=== PATIENT | male | born 1960 | race Caucasian/White ===

== ENCOUNTER 2017-01-27 06:59 | Outpatient (CLI) | payer BC, OTHER ==
[2017-01-27 19:39] LABS: BILIRUBIN,URINE NEGATIVE (NEGATIVE); UR CULTURE IF IND NOT INDICATED; WBC,URINE 0-3 /HPF (0-3)
== END 2017-01-27 07:00 ==
LOC: LAB.WCP 06:59
PROVIDERS: ATTEND Family Medicine
DX: N39.0 Urinary tract infection, site not specified (principal)
CPT/HCPCS: 81001; 82043; 87086

== ENCOUNTER 2017-01-28 13:37 | Emergency (ER) | payer OTHER ==
--- NOTE | 2017-01-28 14:26 | ED Physician Documentation ---
PD HPI ALTERED MENTAL STATUS - Stated complaint Stated Complaint: ELEV BLOOD SUGAR - Chief complaint Chief Complaint: General - History obtained from History obtained from: Patient - History of Present Illness Timing - onset: How many days ago (has been feeling thirsty and urinating a lot for a week, and sugars have been elevated. Went to PMD yesterday with elevated sugar 400s. He had stopped his oral diabetes med about 2 weeks ago and is now feeling badly. Had labs done yesterday which showed low bicarb, so referred to ED today by PMD.) Timing - details: Gradual onset, Waxing and waning Quality / character: Disoriented (feeling lightheaded at times and feels his thinking is a bit slower.) Associated symptoms: General weakness. No: Fever, Headache, Dyspnea, Cough, Focal weakness Contributing factors: Diabetic, Recent med change (he stopped his diabetes med on his own recently (had heard commercial about it with list of side effects so didn't want to be on it).). No: Anticoagulated, Recent illness Basline status: Alert and oriented X 3, Ambulatory Similar symptoms before: Has not had sx before Recently seen: Clinic (yesterday) Review of Systems Constitutional: denies: Fever, Chills Nose: denies: Rhinorrhea / runny nose, Congestion Throat: denies: Sore throat Cardiac: denies: Chest pain / pressure, Palpitations Respiratory: denies: Dyspnea, Cough GI: reports: Nausea. denies: Abdominal Pain, Vomiting, Diarrhea : reports: Frequency. denies: Dysuria Skin: denies: Rash, Lesions Endocrine: reports: Polydypsia, Polyuria Immunocompromised: denies: Immunocompromised PD PAST MEDICAL HISTORY - Past Medical History Cardiovascular: None Respiratory: None Neuro: None Endocrine/Autoimmune: Type 2 diabetes (had stopped his oral diabetes meds couple weeks ago. He says he will resume them. ) - Present Medications Home Medications: Ambulatory Orders Medication Instructions Recorded Confirmed Aspirin 1 tab PO DAILY 01/28/17 01/28/17 Azilsartan Medoxomil [Edarbi] 1 tab PO DAILY 01/28/17 01/28/17 Fenofibrate 1 tab PO DAILY 01/28/17 01/28/17 Hydrochlorothiazide 1 tab PO DAILY 01/28/17 01/28/17 Metoprolol Succinate [Toprol Xl] 1 tab PO DAILY 01/28/17 01/28/17 Simvastatin 1 tab PO DAILY 01/28/17 01/28/17 amLODIPine [Norvasc] 1 tab PO DAILY 01/28/17 01/28/17 metFORMIN [Glucophage] 1 tab PO BID 01/28/17 01/28/17 - Allergies Allergies/Adverse Reactions: Allergies Allergy/AdvReac Type Severity Reaction Status Date / Time No Known Drug Allergies Allergy Verified 01/28/17 15:22 - Family History Family history: reports: DM PD ED PE NORMAL - Vitals Vital signs reviewed: Yes - General General: Alert and oriented X 3, No acute distress, Well developed/nourished - HEENT HEENT: Ears normal, Moist mucous membranes, Pharynx benign - Neck Neck: Supple, no meningeal sign, No adenopathy, No JVD, No bruit - Cardiac Cardiac: RRR, No murmur - Respiratory Respiratory: Clear bilaterally - Abdomen Abdomen: Soft, Non tender, Non distended - Male Male : Deferred - Rectal Rectal: Deferred - Back Back: No CVA TTP - Derm Derm: Normal color, Warm and dry - Extremities Extremities: Normal ROM s pain, No edema, No calf tenderness / cord - Neuro Neuro: Alert and oriented X 3, No motor deficit, Normal speech Results - Vitals Vitals: Oxygen O2 Source Room air - Labs Labs: Laboratory Tests 01/28/17 01/28/17 01/28/17 14:54 15:07 15:07 WBC 6.5 RBC 5.54 Hgb 16.3 Hct 47.6 MCV 86.0 MCH 29.4 MCHC 34.1 RDW 13.4 Plt Count 138 MPV 12.3 H Neut # 3.2 Lymph # 2.6 [place] # 0.6 Eos # 0.0 Baso # 0.0 Absolute Nucleated RBC 0.02 Nucleated RBCs 0.3 Manual Slide Review Indicated WBC Morphology NORMAL APPEARANCE Platelet Estimate NORMAL (130-450,000) Platelet Morphology 1+ GIANT PLATELETS RBC Morph Micro Appear NORMAL APPEARANCE VBG pH VBG pCO2 VBG pO2 VBG HCO3 VBG Total CO2 VBG O2 Saturation VBG Base Excess Sodium 127 L Potassium 4.2 Chloride 83 L Carbon Dioxide 25 Anion Gap 19.0 H BUN 23 H Creatinine 1.1 Estimated GFR (MDRD) 70 L Glucose 379 H POC Whole Bld Glucose 441 H Calcium 9.7 Magnesium 2.2 Total Bilirubin 1.7 H AST 35 ALT < 10 L Alkaline Phosphatase 88 Total Protein 6.7 Albumin 4.1 Globulin 2.6 Albumin/Globulin Ratio 1.6 Lipase 26 Serum Ketones MODERATE H 01/28/17 01/28/17 15:07 17:23 WBC RBC Hgb Hct MCV MCH MCHC RDW Plt Count MPV Neut # Lymph # [place] # Eos # Baso # Absolute Nucleated RBC Nucleated RBCs Manual Slide Review WBC Morphology Platelet Estimate Platelet Morphology RBC Morph Micro Appear VBG pH 7.405 VBG pCO2 43.8 VBG pO2 60.4 H VBG HCO3 26.8 VBG Total CO2 28.2 VBG O2 Saturation 90.4 H VBG Base Excess 1.7 Sodium Potassium Chloride Carbon Dioxide Anion Gap BUN Creatinine Estimated GFR (MDRD) Glucose POC Whole Bld Glucose 275 H Calcium Magnesium Total Bilirubin AST ALT Alkaline Phosphatase Total Protein Albumin Globulin Albumin/Globulin Ratio Lipase Serum Ketones PD MEDICAL DECISION MAKING - ED course Complexity details: considered differential (ketosis without acidosis. Given IV fluids and some insulin. He is taking orally okay. He is to resume his oral diabetes meds. ), d/w patient, d/w senior sustainability consultant (Dr. Koch, who felt not meeting admission criteria without acidosis. ) Departure - Departure Disposition: 01 Home, Self Care Clinical Impression: Ketosis due to diabetes, Hyponatremia Hyperglycemia due to type 2 diabetes mellitus Qualifiers: Diabetes mellitus alf insulin use: without lobsterman use Qualified Code(s ): E11.65 - Type 2 diabetes mellitus with hyperglycemia Condition: Stable Record reviewed to determine appropriate education?: Yes Instructions: ED Diet Diabetic Follow-Up: Jacky Fraser MD [Primary Care Provider] - Comments: Drink regular fluids. Low sugar diet. Resume your prior diabetes medication. Check blood sugars twice daily and track for the next week. Follow up with your PMD next week, call for appt. Discharge Date/Time: 01/28/17 17:58
[2017-01-28] MEDS ORDERED: SODIUM CHLORIDE 0.9% 1,000 ML IV ONE ×2 (14:44→14:45)
[2017-01-28] MEDS ORDERED: ONDANSETRON 4 MG/2 ML VIAL IVP STA (14:45)
[2017-01-28] MEDS ORDERED: ONDANSETRON 4 MG/2 ML VIAL ONE (15:04)
[2017-01-28 15:25] LABS: BASOPHILS % (AUTO) 0.5 %; EOSINOPHILS % (AUTO) 0.8 %; HCT - HEMATOCRIT 47.6 % (42.0-52.0); HGB - HEMOGLOBIN 16.3 g/dL (14.0-18.0); LYMPHOCYTES # (AUTO) 2.6 10^3/uL (1.5-3.5); LYMPHOCYTES % (AUTO) 39.5 %; MEAN CORPUSCULAR HEMOGLOBIN 29.4 pg (27.0-31.0); MEAN CORPUSCULAR HGB CONC 34.1 g/dL (32.0-36.0); MEAN PLATELET VOLUME 12.3 fL (7.4-11.4); MONOCYTES # (AUTO) 0.6 10^3/uL (0.0-1.0); MONOCYTES % (AUTO) 9.7 %; NEUTROPHILS # (AUTO) 3.2 10^3/uL (1.5-6.6); NEUTROPHILS % (AUTO) 49.5 %; NUCLEATED RED BLOOD CELLS AUTO 0.3 /100WBC; RED BLOOD COUNT 5.54 10^6/uL (4.70-6.10); RED CELL DISTRIBUTION WIDTH 13.4 % (12.0-15.0); UNCORRECTED WHITE BLOOD COUNT 6.5 x10^3/uL; WHITE BLOOD COUNT 6.5 x10^3/uL (4.8-10.8)
[2017-01-28 15:26] LABS: VBG BASE EXCESS 1.7 mmol/L (-2 - +2); VBG OXYGEN SATURATION 90.4 % (60-80); VBG PH 7.405 (7.31-7.41); VBG TOTAL CO2 28.2 mmol/L (24-29)
[2017-01-28 15:46] LABS: PLATELET ESTIMATE, MANUAL NORMAL (130-450,000) (NORMAL); PLATELET MORPHOLOGY 1+ GIANT PLATELETS (NORMAL); WBC MORPHOLOGY (MULTIPLE) NORMAL APPEARANCE (NORMAL)
[2017-01-28] MEDS ORDERED: INSULIN REGULAR HUMAN 100 UNIT/1 ML 10 ML MDV IVP STA (15:58)
[2017-01-28] MEDS ORDERED: INSULIN REGULAR HUMAN 100 UNIT/1 ML 10 ML MDV ONE (16:01)
[2017-01-28 16:10] LABS: ALBUMIN/GLOBULIN RATIO 1.6 (1.0-2.2); BILIRUBIN,TOTAL 1.7 mg/dL (0.2-1.0); BUN - BLOOD UREA NITROGEN 23 mg/dL (6-20); CALCIUM 9.7 mg/dL (8.5-10.3); CARBON DIOXIDE - CO2 25 mmol/L (21-32); CHLORIDE 83 mmol/L (101-111); CREATININE 1.1 mg/dL (0.6-1.2); GFR - MDRD 70 (>89); GLUCOSE 379 mg/dL (70-100); LIPASE 26 U/L (22-51); MAGNESIUM 2.2 mg/dL (1.7-2.8); POTASSIUM 4.2 mmol/L (3.5-5.0); SODIUM 127 mmol/L (135-145); TOTAL PROTEIN 6.7 g/dL (6.7-8.2)
[2017-01-28 17:52] VITALS: BP 94/64
== END 2017-01-28 17:58 | disposition home or self-care (01) ==
LOC: ED 13:37
DX: E13.10 Other specified diabetes mellitus with ketoacidosis without coma (principal); E87.1 Hypo-osmolality and hyponatremia; T38.3X6A Underdosing of insulin and oral hypoglycemic [antidiabetic] drugs, initial encounter; Z91.128 Patient's intentional underdosing of medication regimen for other reason; Z79.82 Long term (current) use of aspirin; Z79.84 Long term (current) use of oral hypoglycemic drugs
CPT/HCPCS: 36415; 80053; 82009; 82803; 83690; 83735; 85025; 96361; 96374; 99284; J1815

== ENCOUNTER 2017-08-04 14:11 | Outpatient (CLI) | payer OTHER | END 2017-08-04 14:12 | disposition home or self-care (01) | LOC: SC 14:11 | PROVIDERS: ATTEND Specialist | DX: G47.33 Obstructive sleep apnea (adult) (pediatric) (principal); R06.83 Snoring; I10 Essential (primary) hypertension; E66.9 Obesity, unspecified; Z68.41 Body mass index [BMI] 40.0-44.9, adult | CPT/HCPCS: 99205; 99212 ==

== ENCOUNTER 2017-11-07 09:42 | Outpatient (CLI) | payer OTHER | END 2017-11-07 09:43 | disposition home or self-care (01) | LOC: SC 09:42 | PROVIDERS: ATTEND Internal Medicine Pulmonary Disease | DX: G47.33 Obstructive sleep apnea (adult) (pediatric) (principal) | CPT/HCPCS: 99212; 99213 ==

== ENCOUNTER 2019-02-01 06:44 | Day surgery (SDC) | payer OTHER ==
[2019-02-01] MEDS ORDERED: LACTATED RINGERS 1,000 ML IV ONE (07:01)
[2019-02-01] MEDS ORDERED: fentaNYL 250 MCG/5 ML VIAL IVP ONE (08:14)
[2019-02-01] MEDS ORDERED: MIDAZOLAM 2 MG/2 ML VIAL IVP ONE (08:14)
[2019-02-01 09:43] VITALS: BP 119/82
== END 2019-02-01 06:45 | disposition home or self-care (01) ==
LOC: SDS 06:44
PROVIDERS: ATTEND Internal Medicine Gastroenterology
PROC: 0DBK8ZZ Excision of Ascending Colon, Via Natural or Artificial Opening Endoscopic (ICD-10-PCS; 2019-02-01)
PROC: 0DBK8ZZ Excision of Ascending Colon, Via Natural or Artificial Opening Endoscopic (ICD-10-PCS; principal; 2019-02-01 08:30)
DX: Z12.11 Encounter for screening for malignant neoplasm of colon (principal); D12.2 Benign neoplasm of ascending colon; K57.30 Diverticulosis of large intestine without perforation or abscess without bleeding; K42.9 Umbilical hernia without obstruction or gangrene; I10 Essential (primary) hypertension; E11.9 Type 2 diabetes mellitus without complications; G47.30 Sleep apnea, unspecified; F17.220 Nicotine dependence, chewing tobacco, uncomplicated; Z79.84 Long term (current) use of oral hypoglycemic drugs; E66.01 Morbid (severe) obesity due to excess calories; Z68.41 Body mass index [BMI] 40.0-44.9, adult
CPT/HCPCS: 45380; 45385; J3010; J7120

== ENCOUNTER 2019-04-16 07:31 | Day surgery (SDC) | payer OTHER ==
[~2019-04-16 07:31] MED LIST: BUPIVACAINE 0.5%-EPI 1:200000 PF 30 ML VIAL ONE; ceFAZolin 1 GM VIAL ONE
[2019-04-16] MEDS ORDERED: ROCURONIUM 50 MG/5 ML VIAL IVP ONE (07:32)
[2019-04-16] MEDS ORDERED: ONDANSETRON 4 MG/2 ML VIAL IVP ONE (07:32)
[2019-04-16] MEDS ORDERED: KETOROLAC 30 MG/ML VIAL IVP ONE (07:32)
[2019-04-16] MEDS ORDERED: GLYCOPYRROLATE 1 MG/5 ML VIAL IVP ONE (07:32)
[2019-04-16] MEDS ORDERED: ePHEDrine 50 MG/ML VIAL IVP ONE (07:32)
[2019-04-16] MEDS ORDERED: MIDAZOLAM 2 MG/2 ML VIAL IVP ONE (07:32)
[2019-04-16] MEDS ORDERED: fentaNYL 100 MCG/2 ML VIAL IVP ONE (07:32)
[2019-04-16] MEDS ORDERED: PROPOFOL 200 MG/20 ML VIAL IVP ONE (07:32)
[2019-04-16] MEDS ORDERED: NEOSTIGMINE 1 MG/1 ML 10 ML MDV IVP ONE (07:32)
[2019-04-16] MEDS ORDERED: LACTATED RINGERS 1,000 ML IV ONE ×2 (07:57→09:40)
--- NOTE | 2019-04-16 08:05 | ANESTHESIA ---
Pre-Anesthesia VS, & Labs - Diagnosis Umbilical hernia - Procedure Open umbilical hernia repair with mesh Vital Signs: Temp Pulse Resp BP Pulse Ox 36 C L 80 18 139/97 H 97 04/16/19 07:42 04/16/19 07:42 04/16/19 07:42 04/16/19 07:42 04/16/19 07:42 Height 5 ft 10 in Weight (kg) 134.4 kg Body Mass Index 38.8 - NPO Other (0530 sip water) - Lab Results Current Lab Results: Laboratory Tests 04/16/19 07:47: POC Whole Bld Glucose 143 H Home Medications and Allergies Home Medications: Ambulatory Orders amLODIPine [Norvasc] 1 DAILY 04/16/19 Aspirin 1 tab PO DAILY 01/28/17 Fenofibrate 1 tab PO DAILY 01/28/17 Metoprolol Succinate [Toprol Xl] 1 tab PO DAILY 01/28/17 Simvastatin 1 tab PO DAILY 01/28/17 hydroCHLOROthiazide [Hydrochlorothiazide] 1 tab PO DAILY 01/28/17 metFORMIN [Glucophage] 2 tab PO BID 01/28/17 Glipizide 10 mg PO BID 03/10/17 Telmisartan 80 mg PO DAILY 03/10/17 amLODIPine [Norvasc] 1 DAILY 04/16/19 Allergies/Adverse Reactions: Allergies Allergy/AdvReac Type Severity Reaction Status Date / Time No Known Drug Allergies Allergy Verified 01/28/17 15:22 Anes History & Medical History - Anesthetic History Anesthesia Complications: reports: No previous complications Family history of Anesthesia Complications: Denies Family history of Malignant Hyperthermia: Denies - Medical History Cardiovascular: reports: Hypertension, High cholesterol Pulmonary: reports: Sleep apnea, CPAP use Gastrointestinal: reports: None, Colon polyps Urinary: reports: None Neuro: reports: None Musculoskeletal: reports: None Endocrine/Autoimmune: reports: Type 2 diabetes Blood Disorders: reports: None Skin: reports: None Smoking Status: Never smoker Psychosocial: reports: No issues indicated - Surgical History General: Colonoscopy Exam General: Alert, Oriented x3, Cooperative Dental: Other (Bridges) Mouth Opening: Greater than 4 Fingerbreadths Neck Mobility: Normal Mallampati classification: I Thyromental Distance: greater than 6 cm Respiratory: Lungs clear Cardiovascular: Regular rate Mental/Cognitive Status: Alert/Oriented X3 Cognitive Status: Within normal limits Plan Anesthesia Type: General Consent for Procedure(s) Verified and Reviewed: Yes Code Status: Attempt Resuscitation ASA classification: 3-Severe systemic disease Is this case an emergency?: No
[2019-04-16] MEDS ORDERED: BUPIVACAINE 0.5%-EPI 1:200000 PF 30 ML VIAL SUBQ ONE (08:55)
[2019-04-16] MEDS ORDERED: ceFAZolin 1 GM VIAL IR ONE (08:56)
[2019-04-16] MEDS ORDERED: ONDANSETRON 4 MG/2 ML VIAL IVP PRN (09:36)
[2019-04-16] MEDS ORDERED: ACETAMINOPHEN 325 MG TABLET PO PRN (09:36)
[2019-04-16] MEDS ORDERED: oxyCODONE 5 MG TABLET PO PRN (09:36)
[2019-04-16] MEDS ORDERED: IBUPROFEN 600 MG TABLET PO PRN (09:36)
--- NOTE | 2019-04-16 10:16 | OPERATIVE REPORT ---
DATE OF SERVICE: 04/16/2019 Physician: Ra Reynolds MD PREOPERATIVE DIAGNOSIS: Symptomatic umbilical hernia. POSTOPERATIVE DIAGNOSIS: Symptomatic umbilical hernia. PROCEDURE PERFORMED: Open repair with Ventralex ST hernia patch. ANESTHESIA: General endotracheal plus local by ANESTHESIA PROVIDER: Dania Nunes CRNA. SURGEON: Ra Reynolds MD ESTIMATED BLOOD LOSS: 10 mL COMPLICATIONS: None. FINDINGS: A 3 cm diameter umbilical fascial hernia was present with preperitoneal fat present in comprising the hernia sac. A 3.7-inch diameter Ventralex ST hernia patch was placed in a preperitoneal position. INDICATIONS: Patient is a 58-year-old gentleman with a progressively enlarging and increasingly painful and tender umbilical bulge. Examination revealed a tender reducible umbilical hernia. Because of marked symptoms despite risk factors for recurrence including morbid obesity and diabetes and tobacco dependence, he was advised to undergo repair. TECHNIQUE: After informed consent, patient was taken to the operating room where he was placed under general endotracheal anesthesia. Preoperative preparation included application of sequential calf compression boots and administration of 3 grams of cefazolin intravenously within an hour of the incision. His abdomen had been clipped in the ASU, was prepared with ChloraPrep solution and draped in the usual sterile fashion. A transverse curvilinear infraumbilical incision was made approximately 5-6 cm in length and carried down through subcutaneous tissues. The umbilical dermis was dissected off of the hernia sac. Hernia sac and contents were reduced, and the fascial edges were mobilized circumferentially, developing a space in the preperitoneal plane of sufficient size to place a 3.7-inch diameter Ventralex soft tissue patch. After the space had been created successfully without entering the peritoneal cavity, the wound was irrigated with antibiotic solution containing 1 gram cefazolin per liter, the patch was soaked in the antibiotic solution, placed in the preperitoneal space. The strap was used to hold the patch against the anterior abdominal wall as the fascial defect was reapproximated transversely with interrupted 0 Ethibond sutures. Approximately 8 or 10 sutures were used, several of which incorporated the strap attached to the mesh. Excess strap was excised and discarded. After hemostasis had been ensured, the wound was again irrigated with antibiotic solution, following which wound closure was accomplished in layers using continuous 3-0 Vicryl to reapproximate the subcutaneous tissues, as well as reapproximating the umbilical dermis to the anterior fascia, and 4-0 Monocryl subcuticular skin closure, followed by Dermabond; 30 mL of 0.5% Marcaine with epinephrine was used for local infiltration anesthesia. Anesthesia was terminated and patient was transferred to the recovery room in satisfactory condition. Sponge and needle counts were correct x2. No drains were used. cc: Sanjuana Martell DO TD: 04/16/2019 09:50 MTDD
[2019-04-16] MEDS ORDERED: ACETAMINOPHEN 1,000 MG/100 ML 100 ML IV ONE (10:17)
[2019-04-16 11:39] VITALS: BP 124/82
== END 2019-04-16 07:32 | disposition home or self-care (01) ==
LOC: SDS 07:31
PROVIDERS: ATTEND Internal Medicine Gastroenterology
PROC: 0WUF0JZ Supplement Abdominal Wall with Synthetic Substitute, Open Approach (ICD-10-PCS; principal; 2019-04-16 08:30)
DX: K42.9 Umbilical hernia without obstruction or gangrene (principal); E11.9 Type 2 diabetes mellitus without complications; I10 Essential (primary) hypertension; G47.30 Sleep apnea, unspecified; E78.00 Pure hypercholesterolemia, unspecified; Z79.82 Long term (current) use of aspirin; Z79.84 Long term (current) use of oral hypoglycemic drugs; E66.9 Obesity, unspecified; Z68.38 Body mass index [BMI] 38.0-38.9, adult
CPT/HCPCS: 49585; C1781; J0131; J7120

== ENCOUNTER 2019-10-10 12:57 | Outpatient (CLI) | payer OTHER ==
[2019-10-10 13:50] VITALS: BP 154/100
--- NOTE | 2019-10-10 13:50 | SLEEP CARE CONSULTATION ---
Information from patient questionnaire entered by Jennifer Shoemaker. I have reviewed and concur with the information entered by Jennifer Shoemaker. This document represents the service I personally performed and the decisions made by me, Kori Sepulveda, RN, MSN, MANAGER BUSINESS INFORMATION. History of Present Illness Previous diagnosis: Severe, Obstructive Sleep Apnea-Hypopnea Syndrome AHI: 34.3 Reason for follow up: annual (last seen 2017) Equipment type: CPAP Equipment obtained from: [employer] Mask style: Nasal (Air Fit N20) Mask brand: Resmed Backup mask available: No Last cushion change: none since set up HPI additional information: Patient started CPAP shortly after seeing Dr. Coleman 11/07/17. Compliance date from 11/23 to 12/22.18 showed 70% greater than 4 hours a night with good control of his apnea on autoPAP [id number] with residual of 0.6. He states he has used CPAP nightly since he first started treatment. He was unaware he had to have appointment after getting CPAP. I looked in his last note that stated follow up in one month. Patient states he carries a year schedule with him due to his work and would have scheduled right away if had known. He showed me his schedule today. It is unclear why follow up was not done. He is here today as he is unable to get supplies from [employer] where he obtained his device. He is instead getting his supplies online and recently found out his coworkers get their equipment covered by same insurance. He voiced frustration since hearing this and stated he was upset today. CPAP Compliance Data - Data Reviewed with Patient Average duration of nightly device use: 6.1 Compliance rate %: 76 (180 days) Current pressure setting (cmH2O): 5-15 Humidity settin Average residual AHI: 0.5 Average large leak: 0.4 liters per minute Subjective Patient concerns: reports: nasal congestion (intermittent). denies: aerophagia, mask discomfort, air blowing in eyes, mask leak noise, condensation in mask/hose, dry mouth, nose, throat, epistaxis Observed to snore while using device: No Current pressure setting perceived as: too low (wakes in middle of night intermittently and will have to remove mask to get more air) On therapy, patient: reports: sleeping better, awakening more refreshed, being more awake and alert during the day, more rested overall. denies: drowsiness while driving Initial [place] Sleepiness Scale score: 3 Current [place] Sleepiness Scale score: 0 Allergies and Home Medications Known drug allergies: No Home medication list reviewed: Yes (see list - no changes ) Allergy and home medication list: Medication List Medication Name (generic/name brand) Strength & Dosage Aspirin EC 81mg tab one daily Hydrochlorothiazide 25mg tab one daily Fenofibrate 160mg tab one daily Simvastatin 20mg tab one daily at bedtime Toprol XL 100mg tab one daily Metformin HCL 500mg tab two BID Amlodipine Besylate 5mg tab one daily Telmisartan 80mg tab one daily Glipizide 10mg tab one BID Review of Systems Review of systems same as previous: Yes Physical Exam Blood Pressure: 154/100 (he states he is ticked usuall 110-120-/80 home) Cuff size: long Heart Rate: 84 O2 Saturation: 95 Height: 5 ft 10 in Weight: 301 lb Body Mass Index: 43.2 BMI Classification: Obesity Class 3 Impression and Plan 1. Obstructive Sleep Apnea-Hypopnea Syndrome, severe, with good treatment compliance and good apnea control. On CPAP therapy, the patient has better sleep quality and is more rested overall. It is unclear why he did not have a first compliance follow up or why [facility] has not contacted him to update supplies. The patient makes his appointments as soon as he is aware of need due to his work schedule. He showed me a year calender which he works from and plans from. He has paid for CPAP device and any updated equipment needed. Though he is still wearing the original mask. I gave him a supply replacement list to show what insurance generally covers for reference. Thus I will have him contact his insurance to see if CPAP and supplies covered now before contacting [facility]. His compliance was good within first 90 days of use as well as now. Patient reports he has used it nightly and only takes off if significant air hunger and unable to tolerate. Thus I will adjust his autoCPAP pressure to [id number]. He is to contact me if still air hunger or uncomfortable. Nasal congestion can be reduced with increasing the CPAP humidity but patient was not able to use humidity due to his work as would get water every where in his sleeping berth while traveling. It should be emptied between use but most people try to use the distilled water more than one day. It also seems it was not comfortable to use. Thus saline nasal spray sample was given to use prior to CPAP for moisture. It can also be used to clear nasal secretions and wash off any nasal allergens to facilitate nasal breathing when nasal congestion. In addition, a steamy shower before bed will often assist nasal drainage. Patient's apnea severity and rationale for treatment to reduce apnea, improve sleep quality and reduce cardiovascular and cerebrovascular events was reviewed. I also reviewed the benefit of consistent device use of CPAP for hypertension, diabetes. 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 It is hoped with this documentation of his use of CPAP since starting treatment that his supplies will now be paid for by insurance. I also ordered update of his CPAP supplies to initiate process. 2. Elevated Blood pressure, patient states he is upset due to finding out his CPAP should be paid by his insurance like his co workers. He monitors his blood pressure regularly and it is generally in normal range of 120/80 range. He is advised to retake once he is home and settled. As noted in exam note. Patient came in here upset due to finding his co-workers CPAP was paid for insurance and he reports he paid for his. If his blood pressure continues to be elevated he is to contact his PCP. I also reviewed the health risks of inadequately treated blood pressure. Patient agreed with plan. * Change autoCPAP pressure to 12-15 cmH2O * Update supplies * Notify me if snoring with mask or feeling that the pressure is too much or too little * Attempt to lose weight * retake Blood pressure at home and contact PCP if still elevated. * Call this office if any problems using CPAP * Return for follow up in 1 year , or sooner if concerns arise Time Spent with Patient (minutes): 40 I spent 100% of this visit face to face with the patient with greater than 50% of this was spent time counseling the patient and coordination of care.
== END 2019-10-10 12:58 | disposition home or self-care (01) ==
LOC: SC 12:57
PROVIDERS: ATTEND Nurse Practitioner Family
DX: G47.33 Obstructive sleep apnea (adult) (pediatric) (principal); R03.0 Elevated blood-pressure reading, without diagnosis of hypertension; E66.9 Obesity, unspecified; Z68.41 Body mass index [BMI] 40.0-44.9, adult
CPT/HCPCS: 99212; 99215

== ENCOUNTER 2020-03-05 08:00 | Outpatient (CLI) | payer OTHER | END 2020-03-05 23:59 | disposition home or self-care (01) | LOC: LAB 08:00 | PROVIDERS: ATTEND Family Medicine | DX: Z11.59 Encounter for screening for other viral diseases (principal) | CPT/HCPCS: 81599 ==

== ENCOUNTER 2020-07-09 13:14 | Outpatient (CLI) | payer OTHER ==
--- NOTE | 2020-07-09 16:31 | XRAY Report ---
PROCEDURE: Cervical Spine 2 View INDICATIONS: CERVICAL RADICULOPATHY TECHNIQUE: 3 view(s) of the cervical spine were acquired. COMPARISON: None. FINDINGS: Bones: No fractures or dislocations to the superior endplate of T1 level. The lateral masses of C1 appear intact on the odontoid view. No suspicious bony lesions. Straightening of cervical lordosis. Multilevel cervical spondylosis most pronounced at C5-6 through C7-T1. There is disc space loss, end plate changes and endplate osteophyte formation at these levels. Soft tissues: No prevertebral soft tissue swelling. IMPRESSION: Cervical spine without acute fracture or dislocation. Straightening of cervical lordosis likely related to positioning and/or muscle spasms. Multilevel cervical spondylosis most pronounced from C5-6 through C7-T1. Reviewed by: Tyron Solomon MD on 07/09/2020 3:29 PM [facility] Approved by: Tyron Solomon MD on 07/09/2020 3:29 PM [facility] Station ID: [id number]
== END 2020-07-09 23:59 | disposition home or self-care (01) ==
LOC: DI.WCP 13:14
PROVIDERS: ATTEND Family Medicine
DX: M47.812 Spondylosis without myelopathy or radiculopathy, cervical region (principal); M47.813 Spondylosis without myelopathy or radiculopathy, cervicothoracic region
CPT/HCPCS: 72040

== ENCOUNTER 2020-11-27 07:50 | Outpatient (CLI) | payer OTHER ==
[2020-11-27 11:42] LABS: BASOPHILS % (AUTO) 0.5 %; EOSINOPHILS # (AUTO) 0.1 10^3/uL (0.0-0.7); EOSINOPHILS % (AUTO) 1.6 %; HCT - HEMATOCRIT 44.4 % (42.0-52.0); HGB - HEMOGLOBIN 14.8 g/dL (14.0-18.0); LYMPHOCYTES # (AUTO) 2.4 10^3/uL (1.5-3.5); LYMPHOCYTES % (AUTO) 42.7 %; MEAN CORPUSCULAR HEMOGLOBIN 30.1 pg (27.0-31.0); MEAN CORPUSCULAR HGB CONC 33.3 g/dL (32.0-36.0); MEAN CORPUSCULAR VOLUME 90.2 fL (80.0-94.0); MONOCYTES # (AUTO) 0.5 10^3/uL (0.0-1.0); NEUTROPHILS # (AUTO) 2.5 10^3/uL (1.5-6.6); NEUTROPHILS % (AUTO) 45.1 %; PLT - PLATELET COUNT 189 10^3/uL (130-450); RED BLOOD COUNT 4.92 10^6/uL (4.70-6.10); RED CELL DISTRIBUTION WIDTH 12.7 % (12.0-15.0); WHITE BLOOD COUNT 5.6 x10^3/uL (4.8-10.8)
[2020-11-27 12:19] LABS: ALBUMIN 4.6 g/dL (3.2-5.5); ALBUMIN/GLOBULIN RATIO 1.5 (1.0-2.2); ALKALINE PHOSPHATASE 78 IU/L (42-121); ALT ALANINE AMINOTRANSFERASE 42 IU/L (10-60); AST ASPARTATE AMINOTRANSFERASE 24 IU/L (10-42); BILIRUBIN,TOTAL 0.3 mg/dL (0.2-1.0); BUN - BLOOD UREA NITROGEN 15 mg/dL (6-20); CALCIUM 9.9 mg/dL (8.5-10.3); CARBON DIOXIDE - CO2 24 mmol/L (21-32); CHLORIDE 106 mmol/L (101-111); CHOL/HDL RATIO 7.1 (<5.0); CHOLESTEROL 177 mg/dL; GFR - MDRD 77 (>89); GLUCOSE 143 mg/dL (70-100); HDL CHOLESTEROL 25 mg/dL; LDL CHOLESTEROL,CALCULATED 91 mg/dL; LDL/HDL RATIO 3.6 (<3.6); SODIUM 138 mmol/L (135-145); TOTAL PROTEIN 7.6 g/dL (6.7-8.2); TRIGLYCERIDES 306 mg/dL; VLDL CHOLESTEROL 61 mg/dL
[2020-11-27 12:21] LABS: ESTIMATED AVERAGE GLUCOSE 226 mg/dL (70-100); HEMOGLOBIN A1c% 9.5 % (4.27-6.07)
== END 2020-11-27 23:59 | disposition home or self-care (01) ==
LOC: LAB.WCP 07:50
PROVIDERS: ATTEND Family Medicine
DX: E11.9 Type 2 diabetes mellitus without complications (principal)
CPT/HCPCS: 36415; 80053; 80061; 83036; 83721; 85025

== ENCOUNTER 2021-06-20 08:00 | Outpatient (CLI) | payer OTHER | END 2021-06-20 23:59 | disposition home or self-care (01) | LOC: LAB.N 08:00 | PROVIDERS: ATTEND Physician Assistant Medical | DX: R05.3 Chronic cough (principal); Z20.822 Contact with and (suspected) exposure to COVID-19 ==

== ENCOUNTER 2022-07-28 12:41 | Outpatient (CLI) | payer BC ==
--- NOTE | 2022-07-28 13:22 | SLEEP CARE CONSULTATION ---
Information from patient questionnaire entered by Ella Cole. I have reviewed and concur with the information entered by Ella Cole. This document represents the service I personally performed and the decisions made by me, Elvi Skinner ARNP. History of Present Illness Service Date and Time: 07/28/2022 1241 Previous diagnosis: Severe, Obstructive Sleep Apnea-Hypopnea Syndrome AHI: 34.3 Reason for follow up: annual (LAST SEEN 10/2019) Equipment type: CPAP (GRIFFITH) Equipment obtained from: [employer] (has changed insurance) Mask style: Nasal (Air Fit N20) Backup mask available: No (will keep old mask when replaced) Last cushion change: 4-5 months ago Prior sleep studies: Yes HPI additional information: LORENA MCKEON was diagnosed to have severe, AHI 43.3, obstructive sleep apnea- hypopnea syndrome and returned today for CPAP therapy annual follow-up. CPAP Compliance Data - Data Reviewed with Patient Average duration of nightly device use: 8 hours 8 mins Compliance rate %: 98 (90/90 days used) Current pressure setting (cmH2O): 8-12 Average residual AHI: 0.4 Central apnea: 0.0 Obstructive apnea: 0.2 Average large leak: 2.5 LPM Subjective Missed days of use due to: reports: other (work starting early) Patient concerns: reports: nasal congestion (at night prior to putting mask on). denies: aerophagia, mask discomfort, air blowing in eyes, mask leak noise, condensation in mask/hose, dry mouth, nose, throat, epistaxis Observed to snore while using device: No Current pressure setting perceived as: comfortable On therapy, patient: reports: sleeping better, awakening more refreshed, being more awake and alert during the day, more rested overall. denies: drowsiness while driving Initial [place] Sleepiness Scale score: 3 (07/2022) Allergies and Home Medications Drug allergies reviewed: Yes (NKDA) Home medication list reviewed: Yes (no changes) Review of Systems Review of systems same as previous: Yes (no changes) Physical Exam Vital signs obtained and entered by: ELLA Bassett MA Blood Pressure: 144/90 (LEFT ARM) Cuff size: regular Heart Rate: 55 O2 Saturation: 95 Height: 5 ft 10 in Weight: 277 lb 9.6 oz (with shoes/clothes) Body Mass Index: 39.8 BMI Classification: Obese Impression and Plan 1. Obstructive Sleep Apnea-Hypopnea Syndrome, severe, with good treatment compliance and good apnea control. On CPAP therapy, the patient has better sleep quality and is more rested overall. Patient has changed insurance and needs a new DME supplier. I will have my pesticide use medical coordinator inform of DME options. A [facility] prescription will then be made. Patient advised to contact this office if further supply problems. Patient has significant improvement of their sleep apnea and are satisfied with current CPAP therapy. Patient denies problems with oral dryness, nasal congestion, epistaxis, skin irritation or aerophagia. Patient's apnea severity and rationale for treatment to reduce apnea, improve sleep quality and reduce cardiovascular and cerebrovascular events was reviewed. I also reviewed the benefit of consistent device use of CPAP for hypertension and diabetes. 2. Obesity, unspecified. Currently patients BMI is 39.8. Obesity increases the risk of apnea, CPAP pressure requirements and overall health risks especially cardiovascular and diabetes. Thus patient is advised to continue to try to lose weight. * Continue auto CPAP pressure at 12-15 cmH2O * Transfer DME * Update * Notify me if snoring with mask or feeling that the pressure is too much or too little * Attempt to lose weight * Call this office if any problems using CPAP * Return for follow up in 1 year, or sooner if concerns arise Counseling Topics: Spare mask, Weight loss health impact Visit Type: In Office Time Spent with Patient (minutes): 22 Provider Statement: I spent 100% of the Face to Face Visit with the patient with greater than 50% spent counseling the patient and coordination of care.
[2022-07-28 13:23] VITALS: BP 144/90
== END 2022-07-28 12:42 | disposition home or self-care (01) ==
LOC: SC 12:41
PROVIDERS: ATTEND Nurse Practitioner Family
DX: G47.33 Obstructive sleep apnea (adult) (pediatric) (principal); E66.9 Obesity, unspecified; Z68.39 Body mass index [BMI] 39.0-39.9, adult
CPT/HCPCS: 99212; 99213

== ENCOUNTER 2022-08-26 09:09 | Outpatient (CLI) | payer BC ==
[2022-08-26 13:11] LABS: BASOPHILS % (AUTO) 0.4 %; EOSINOPHILS # (AUTO) 0.1 10^3/uL (0.0-0.7); EOSINOPHILS % (AUTO) 1.2 %; HCT - HEMATOCRIT 47.9 % (42.0-52.0); HGB - HEMOGLOBIN 15.5 g/dL (14.0-18.0); LYMPHOCYTES % (AUTO) 35.3 %; MEAN CORPUSCULAR HEMOGLOBIN 29.2 pg (27.0-31.0); MEAN CORPUSCULAR HGB CONC 32.4 g/dL (32.0-36.0); MEAN CORPUSCULAR VOLUME 90.4 fL (80.0-94.0); MEAN PLATELET VOLUME 13.5 fL (7.4-11.4); MONOCYTES # (AUTO) 0.5 10^3/uL (0.0-1.0); MONOCYTES % (AUTO) 9.4 %; NEUTROPHILS % (AUTO) 52.8 %; PLT - PLATELET COUNT 172 10^3/uL (130-450); RED CELL DISTRIBUTION WIDTH 12.6 % (12.0-15.0); WHITE BLOOD COUNT 5.6 x10^3/uL (4.8-10.8)
[2022-08-26 13:15] LABS: ESTIMATED AVERAGE GLUCOSE 151 mg/dL (70-100); HEMOGLOBIN A1c% 6.9 % (4.27-6.07)
[2022-08-26 13:24] LABS: MICROALBUM/CREATININE RATIO,UR 31.1 ug/mg (<30.0); MICROALBUMIN,URINE 5.5 mg/dL (0-300.0)
[2022-08-26 13:25] LABS: ALBUMIN 4.5 g/dL (3.2-5.5); ALBUMIN/GLOBULIN RATIO 1.2 (1.0-2.2); ALKALINE PHOSPHATASE 70 IU/L (42-121); ALT ALANINE AMINOTRANSFERASE 49 IU/L (10-60); AST ASPARTATE AMINOTRANSFERASE 34 IU/L (10-42); BILIRUBIN,TOTAL 0.4 mg/dL (0.2-1.0); BUN - BLOOD UREA NITROGEN 12 mg/dL (6-20); CALCIUM 9.3 mg/dL (8.5-10.3); CARBON DIOXIDE - CO2 29 mmol/L (21-32); CHLORIDE 98 mmol/L (101-111); CHOL/HDL RATIO 6.3 (<5.0); CHOLESTEROL 169 mg/dL; CREATININE 0.9 mg/dL (0.6-1.2); GFR - MDRD 86 (>89); GLUCOSE 153 mg/dL (70-100); HDL CHOLESTEROL 27 mg/dL; LDL CHOLESTEROL,CALCULATED 107 mg/dL; POTASSIUM 3.8 mmol/L (3.5-5.0); SODIUM 136 mmol/L (135-145); TOTAL PROTEIN 8.2 g/dL (6.7-8.2); TRIGLYCERIDES 175 mg/dL; VLDL CHOLESTEROL 35 mg/dL
== END 2022-08-26 09:10 | disposition home or self-care (01) ==
LOC: LAB.N 09:09
PROVIDERS: ATTEND Family Medicine
DX: I10 Essential (primary) hypertension (principal); E11.9 Type 2 diabetes mellitus without complications; E78.1 Pure hyperglyceridemia; Z12.5 Encounter for screening for malignant neoplasm of prostate
CPT/HCPCS: 36415; 80053; 80061; 82043; 82570; 83036; 83721; 84153; 85025

== ENCOUNTER 2022-11-27 09:10 | Outpatient (CLI) | payer BC ==
[2022-11-27 19:03] LABS: BASOPHILS % (AUTO) 0.4 %; EOSINOPHILS # (AUTO) 0.1 10^3/uL (0.0-0.7); EOSINOPHILS % (AUTO) 1.5 %; HCT - HEMATOCRIT 45.3 % (42.0-52.0); HGB - HEMOGLOBIN 14.7 g/dL (14.0-18.0); LYMPHOCYTES # (AUTO) 2.1 10^3/uL (1.5-3.5); LYMPHOCYTES % (AUTO) 38.7 %; MEAN CORPUSCULAR HEMOGLOBIN 29.9 pg (27.0-31.0); MEAN CORPUSCULAR HGB CONC 32.5 g/dL (32.0-36.0); MEAN CORPUSCULAR VOLUME 92.1 fL (80.0-94.0); MONOCYTES # (AUTO) 0.6 10^3/uL (0.0-1.0); MONOCYTES % (AUTO) 10.8 %; NEUTROPHILS # (AUTO) 2.6 10^3/uL (1.5-6.6); NEUTROPHILS % (AUTO) 48.2 %; PLT - PLATELET COUNT 199 10^3/uL (130-450); RED BLOOD COUNT 4.92 10^6/uL (4.70-6.10); RED CELL DISTRIBUTION WIDTH 12.4 % (12.0-15.0); WHITE BLOOD COUNT 5.4 x10^3/uL (4.8-10.8)
[2022-11-27 19:11] LABS: ALBUMIN 4.4 g/dL (3.2-5.5); ALBUMIN/GLOBULIN RATIO 1.4 (1.0-2.2); BILIRUBIN,TOTAL 0.6 mg/dL (0.2-1.0); CALCIUM 9.3 mg/dL (8.5-10.3); TOTAL PROTEIN 7.5 g/dL (6.7-8.2)
[2022-11-28 09:16] LABS: ESTIMATED AVERAGE GLUCOSE 148 mg/dL (70-100); HEMOGLOBIN A1c% 6.8 % (4.27-6.07)
== END 2022-11-27 09:11 | disposition home or self-care (01) ==
LOC: LAB.N 09:10
PROVIDERS: ATTEND Family Medicine
DX: I10 Essential (primary) hypertension (principal); E11.9 Type 2 diabetes mellitus without complications; E78.5 Hyperlipidemia, unspecified
CPT/HCPCS: 36415; 80053; 83036; 85025

== ENCOUNTER 2022-12-11 09:10 | Outpatient (CLI) | payer BC ==
[2022-12-11 09:30] LABS: CALCIUM 9.3 mg/dL (8.5-10.3); POTASSIUM 3.9 mmol/L (3.5-5.0)
--- NOTE | 2022-12-11 19:38 | XRAY Report ---
PROCEDURE: Knee 3 View RT INDICATIONS: KNEE PAIN,RIGHT TECHNIQUE: 3 views of the right knee(s) were acquired. COMPARISON: None. FINDINGS: Bones: No fractures or dislocations. No suspicious bony lesions. There is at least moderate joint s pace also medial compartment and mild joint space loss of the patellofemoral compartment. There is tr icompartment osteophytosis worse within the patellofemoral and medial compartments. Soft tissues: No effusion. No suspicious soft tissue calcifications or masses. 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 Reviewed by: Eliseo Nesbitt DO on 12/11/2022 6:37 PM [facility] Approved by: Eliseo Nesbitt DO on 12/11/2022 6:37 PM [facility] Station ID: [id number]
== END 2022-12-11 09:11 | disposition home or self-care (01) ==
LOC: DI 09:10
PROVIDERS: ATTEND Physician Assistant
DX: M17.11 Unilateral primary osteoarthritis, right knee (principal); I10 Essential (primary) hypertension
CPT/HCPCS: 36415; 80048

== ENCOUNTER 2023-03-17 13:23 | Outpatient (CLI) | payer BC ==
[2023-03-17 18:05] LABS: CALCIUM 9.5 mg/dL (8.5-10.3); CREATININE 1.5 mg/dL (0.6-1.2); POTASSIUM 3.6 mmol/L (3.5-5.0)
== END 2023-03-17 13:24 | disposition home or self-care (01) ==
LOC: LAB.N 13:23
PROVIDERS: ATTEND Physician Assistant
DX: I10 Essential (primary) hypertension (principal)
CPT/HCPCS: 36415; 80048

== ENCOUNTER 2023-04-09 09:50 | Outpatient (CLI) | payer BC ==
[2023-04-09 19:20] LABS: BASOPHILS % (AUTO) 0.4 %; EOSINOPHILS # (AUTO) 0.1 10^3/uL (0.0-0.7); EOSINOPHILS % (AUTO) 1.5 %; HCT - HEMATOCRIT 44.2 % (42.0-52.0); HGB - HEMOGLOBIN 14.3 g/dL (14.0-18.0); LYMPHOCYTES # (AUTO) 2.1 10^3/uL (1.5-3.5); LYMPHOCYTES % (AUTO) 38.3 %; MEAN CORPUSCULAR HEMOGLOBIN 29.9 pg (27.0-31.0); MEAN CORPUSCULAR HGB CONC 32.4 g/dL (32.0-36.0); MEAN CORPUSCULAR VOLUME 92.5 fL (80.0-94.0); MEAN PLATELET VOLUME 12.9 fL (7.4-11.4); MONOCYTES # (AUTO) 0.5 10^3/uL (0.0-1.0); MONOCYTES % (AUTO) 9.5 %; NEUTROPHILS # (AUTO) 2.7 10^3/uL (1.5-6.6); NEUTROPHILS % (AUTO) 49.6 %; PLT - PLATELET COUNT 208 10^3/uL (130-450); RED BLOOD COUNT 4.78 10^6/uL (4.70-6.10); RED CELL DISTRIBUTION WIDTH 12.3 % (12.0-15.0); WHITE BLOOD COUNT 5.5 x10^3/uL (4.8-10.8)
[2023-04-09 19:35] LABS: ALBUMIN 4.5 g/dL (3.2-5.5); ALBUMIN/GLOBULIN RATIO 1.5 (1.0-2.2); ALKALINE PHOSPHATASE 59 IU/L (42-121); ALT ALANINE AMINOTRANSFERASE 21 IU/L (10-60); AST ASPARTATE AMINOTRANSFERASE 17 IU/L (10-42); BILIRUBIN,TOTAL 0.5 mg/dL (0.2-1.0); BUN - BLOOD UREA NITROGEN 11 mg/dL (6-20); CALCIUM 9.7 mg/dL (8.5-10.3); CARBON DIOXIDE - CO2 28 mmol/L (21-32); CHLORIDE 104 mmol/L (101-111); CHOL/HDL RATIO 4.9 (<5.0); CHOLESTEROL 137 mg/dL; GFR - MDRD 76 (>89); GLUCOSE 131 mg/dL (74-104); HDL CHOLESTEROL 28 mg/dL; LDL CHOLESTEROL,CALCULATED 83 mg/dL; POTASSIUM 4.1 mmol/L (3.5-4.5); SODIUM 138 mmol/L (135-145); TOTAL PROTEIN 7.5 g/dL (6.4-8.9); TRIGLYCERIDES 129 mg/dL (48-352); VLDL CHOLESTEROL 26 mg/dL
[2023-04-09 19:42] LABS: CREATININE,URINE 203.2 mg/dL; MICROALBUM/CREATININE RATIO,UR 6.4 ug/mg (<30.0); MICROALBUMIN,URINE 1.3 mg/dL
[2023-04-09 20:29] LABS: THYROID STIMULATING HORMONE 0.64 uIU/mL (0.34-5.60)
[2023-04-09 20:30] LABS: ESTIMATED AVERAGE GLUCOSE 163 mg/dL (70-100); HEMOGLOBIN A1c% 7.3 % (4.27-6.07)
== END 2023-04-09 09:51 | disposition home or self-care (01) ==
LOC: LAB.N 09:50
PROVIDERS: ATTEND Physician Assistant
DX: E78.5 Hyperlipidemia, unspecified (principal); R79.89 Other specified abnormal findings of blood chemistry; E11.9 Type 2 diabetes mellitus without complications
CPT/HCPCS: 36415; 80053; 80061; 82043; 82570; 83036; 83721; 84443; 85025

== ENCOUNTER 2023-12-18 08:41 | Outpatient (CLI) | payer BC ==
[2023-12-18 09:10] LABS: CALCIUM 9.7 mg/dL (8.5-10.3); POTASSIUM 3.9 mmol/L (3.5-4.5)
[2023-12-18 15:12] LABS: ESTIMATED AVERAGE GLUCOSE 235 mg/dL (70-100); HEMOGLOBIN A1c% 9.8 % (4.27-6.07)
== END 2023-12-18 08:42 | disposition home or self-care (01) ==
LOC: LAB 08:41
PROVIDERS: ATTEND Physician Assistant
DX: E11.9 Type 2 diabetes mellitus without complications (principal)
CPT/HCPCS: 36415; 80048; 83036

== ENCOUNTER 2024-04-28 08:13 | Outpatient (CLI) | payer BC ==
[2024-04-28 08:36] LABS: BASOPHILS % (AUTO) 0.3 %; EOSINOPHILS # (AUTO) 0.1 10^3/uL (0.0-0.7); EOSINOPHILS % (AUTO) 1.5 %; HGB - HEMOGLOBIN 15.2 g/dL (14.0-18.0); LYMPHOCYTES # (AUTO) 1.9 10^3/uL (1.5-3.5); MEAN CORPUSCULAR HEMOGLOBIN 29.1 pg (27.0-31.0); MEAN CORPUSCULAR HGB CONC 32.3 g/dL (32.0-36.0); MEAN CORPUSCULAR VOLUME 89.9 fL (80.0-94.0); MEAN PLATELET VOLUME 11.7 fL (7.4-11.4); MONOCYTES # (AUTO) 0.5 10^3/uL (0.0-1.0); MONOCYTES % (AUTO) 8.7 %; NEUTROPHILS # (AUTO) 3.3 10^3/uL (1.5-6.6); PLT - PLATELET COUNT 201 10^3/uL (130-450); RED BLOOD COUNT 5.23 10^6/uL (4.70-6.10); RED CELL DISTRIBUTION WIDTH 12.4 % (12.0-15.0); WHITE BLOOD COUNT 5.8 x10^3/uL (4.8-10.8)
[2024-04-28 08:50] LABS: ALBUMIN 4.3 g/dL (3.2-5.5); ALBUMIN/GLOBULIN RATIO 1.3 (1.0-2.2); ALKALINE PHOSPHATASE 48 IU/L (42-121); ALT ALANINE AMINOTRANSFERASE 19 IU/L (10-60); AST ASPARTATE AMINOTRANSFERASE 17 IU/L (10-42); BILIRUBIN,TOTAL 0.6 mg/dL (0.2-1.0); BUN - BLOOD UREA NITROGEN 19 mg/dL (6-20); CALCIUM 9.4 mg/dL (8.5-10.3); CARBON DIOXIDE - CO2 26 mmol/L (21-32); CHLORIDE 103 mmol/L (101-111); CHOL/HDL RATIO 5.1 (<5.0); CHOLESTEROL 142 mg/dL; GFR - MDRD 76 (>89); GLUCOSE 140 mg/dL (74-104); HDL CHOLESTEROL 28 mg/dL; LDL CHOLESTEROL,CALCULATED 78 mg/dL; LDL/HDL RATIO 2.8 (<3.6); POTASSIUM 3.6 mmol/L (3.5-4.5); SODIUM 136 mmol/L (135-145); TOTAL PROTEIN 7.5 g/dL (6.4-8.9); TRIGLYCERIDES 181 mg/dL; VLDL CHOLESTEROL 36 mg/dL
[2024-04-28 09:04] LABS: CREATININE,URINE 125.2 mg/dL
[2024-04-28 09:05] LABS: MICROALBUMIN,URINE < 0.7 mg/dL
[2024-04-28 09:14] LABS: ESTIMATED AVERAGE GLUCOSE 157 mg/dL (70-100); HEMOGLOBIN A1c% 7.1 % (4.27-6.07)
== END 2024-04-28 08:14 | disposition home or self-care (01) ==
LOC: LAB 08:13
PROVIDERS: ATTEND Physician Assistant
DX: E11.9 Type 2 diabetes mellitus without complications (principal); Z12.5 Encounter for screening for malignant neoplasm of prostate
CPT/HCPCS: 36415; 80053; 80061; 82043; 82570; 83036; 83721; 84153; 85025